=== PATIENT | male | born 1975 | race Caucasian/White ===

== ENCOUNTER 2018-02-02 19:08 | Emergency (ER) | payer BC ==
[~2018-02-02] VITALS: Ht 182.9 cm; Wt 118.2 kg
[2018-02-02 19:32] VITALS: Ht 182.9 cm; Wt 118.2 kg
[2018-02-02] MEDS ORDERED: TORADOL10 MG PO (22:24)
[2018-02-02 22:45] VITALS: BP 138/85
== END 2018-02-02 22:45 | disposition home or self-care (01) ==
LOC: D.ER 19:08
DX: S00.93XA Contusion of unspecified part of head, initial encounter (principal); W11.XXXA Fall on and from ladder, initial encounter; Y93.89 Activity, other specified; Y92.018 Other place in single-family (private) house as the place of occurrence of the external cause; S01.91XA Laceration without foreign body of unspecified part of head, initial encounter